=== PATIENT | male | born 1945 | race Caucasian/White ===

== ENCOUNTER 2016-11-14 08:47 | Emergency (ER) | payer MEDICARE, BC ==
--- NOTE | ~2016-11-14 | CT4 ---
[facility] A Service of [facility] / [facility] RADIOLOGY TEXT RESULTS PATIENT: ALMAZ BOYER LOCATION: [facility] : 43 UNIT #: [id number] AGE: [address]: Celeste Delgadillo APRN SEX: M ORDER DR: [id number] [facility] [address] [facility] [place], [place] [address] [id number] MR#: [id number] Acc #: [id number] NAME: ALMAZ BOYER : 1945 SEX: M STUDY DATE/TIME: 11/14/2016 10:32 UNIT: [facility] ROOM: STUDY DESCRIPTION: CT Abd and Pelv Wo Cont Attending Physician: Celeste Delgadillo A.P.R.N. Ordering Physician: Celeste Delgadillo A.P.R.N. Primary Care Physician: Primary Care Physician No MEDICAL IMAGING REPORT This report is preliminary unless electronic signature is present EXAM Abdomen and pelvis CT HISTORY Left-sided renal colic with nausea and frequent urination accompanied by low back pain beginning 11/11/2016. COMPARISON 09/26/2012 TECHNIQUE Axial images were obtained without contrast. This CT exam was performed with one or more of the following radiation dose reduction techniques: automatic exposure control, adjustment of mA and/or kV according to patient size, and iterative reconstruction. FINDINGS The liver, spleen and pancreas are normal in size. The right kidney is unremarkable. The left kidney demonstrates severe hydronephrosis with perinephric edema. There is a stone in the mid-left ureter at the level of the pelvic brim measuring 6.0 mm in diameter x 7.0 mm causing the obstruction. No bladder stones are seen. Diverticulosis is seen. No acute or inflammatory changes are noted elsewhere in the abdomen or pelvis. IMPRESSION 1. 6.0 x 7.0 mm obstructing stone mid-left ureter at the level of the iliac crest with severe hydronephrosis and perinephric edema. 2. No inflammatory or acute changes are seen elsewhere in the abdomen or pelvis. Dictated by... Daniele Pham M.D. [facility] A Service of [facility] & [facility] RADIOLOGY TEXT RESULTS PATIENT: ALMAZ BOYER LOCATION: [facility] : 43 UNIT #: [id number] AGE: [address]: Celeste Delgadillo APRN SEX: M ORDER DR: THIS IS AN ELECTRONICALLY VERIFIED REPORT Daniele Pham M.D. at 11/16/2016 9:45 AM Pretty TD: 11/14/2016 22:26 JOB #: [id number] MEDICAL IMAGING REPORT Page 1 of 1 COPY
--- NOTE | ~2016-11-14 | CR7 ---
[facility] A Service of [facility] RADIOLOGY TEXT RESULTS PATIENT: ALMAZ BOYER LOCATION: [facility] : 44 UNIT #: [id number] AGE: [address]: Celeste Delgadillo APRN SEX: M ORDER DR: [id number] [facility] [address] [facility] [place], [place] [address] [id number] E MR#: [id number] Acc #: [id number] NAME: ALMAZ BOYER : 1945 SEX: M STUDY DATE/TIME: 11/14/2016 11:37 UNIT: [facility] ROOM: STUDY DESCRIPTION: CR Abdomen Single AP View Attending Physician: Celeste Delgadillo A.P.R.N. Ordering Physician: Juan C Hernandez M.D. Primary Care Physician: Primary Care Physician No MEDICAL IMAGING REPORT This report is preliminary unless electronic signature is present EXAM AP view of the abdomen, 11/14/[address] abdomen and pelvis dated November 14, 2016 INDICATION 71-year-old male with left flank and back pain for 3 days. Kidney stone. FINDINGS There is A stable bowel gas pattern with gaseous and stool distension of the cecum, unchanged from CT of earlier today. No evidence of high-grade mechanical bowel obstruction. Prior lower anterior abdominal wall hernia repair is noted. Calcified splenic granulomas are noted. Obstructive left ureteral calculus seen on CT of early today is not visualized on the current radiograph and this may be radiographically occult. IMPRESSION 1. Stable stool and gaseous distension of the cecum. No evidence of mechanical bowel obstruction. 2. The distal left obstructive ureteral calculus seen on CT of earlier today is not seen on current radiograph and may be radiographically occult. Clinical correlation recommended. Dictated by... Amari Hugo M.D. THIS IS AN ELECTRONICALLY VERIFIED REPORT Amari Hugo M.D. at 11/16/2016 10:51 AM VICTORINA/cristina TD: 11/14/2016 23:53 [facility] A Service of [facility] RADIOLOGY TEXT RESULTS PATIENT: ALMAZ BOYER LOCATION: [facility] : 44 UNIT #: [id number] AGE: [address]: Celeste Delgadillo APRN SEX: M ORDER DR: JOB #: [id number] MEDICAL IMAGING REPORT Page 1 of 1 COPY
[2016-11-14 07:27] LABS: URINE SOURCE CLEAN CATCH
[2016-11-14 07:33] LABS: URINE APPEARANCE CLEAR; URINE BILIRUBIN NEG (NEG); URINE BLOOD 1+ (NEG); URINE COLOR YELLOW; URINE GLUCOSE NEG (NEG); URINE KETONE 3+ (NEG); URINE LEUKOCYTE ESTERASE TRACE (NEG); URINE NITRATE NEG (NEG); URINE PH 6.5 (5-8); URINE PROTEIN NEG (NEG)
[2016-11-14 07:35] LABS: CULTURE INDICATED? NO; U HYALINE CASTS AUWI 0-2 /[LPF]; URINE BACTERIA AUWI NEG (NEGATIVE); URINE SQUAMOUS EPITHELIAL CELL NONE SEEN /[HPF]; UWBCS1 AUWI 0-2 (0-5)
[2016-11-14 09:12] LABS: HEMATOCRIT 44.2 % (38.0-50.0); HEMOGLOBIN 14.5 gm/dL (13.0-16.0); LYMPHOCYTE# 0.3 X10e3 (1.0-3.5); LYMPHOCYTE% 2.3 % (17.0-45.0); MEAN CELL VOLUME 94.7 FL (83-96); MEAN CORPUSCULAR HEMOGLOBIN 31.1 PG (28-34); MEAN CORPUSCULAR HGB CONC 32.9 g/dL (30-36); MEAN PLATELET VOLUME 8.1 FL (6.5-11.5); MONOCYTE# 0.8 X10e3 (0-1.0); MONOCYTE% 6.2 % (3.0-12.0); NEUTROPHIL# 11.5 X10e3 (1.5-7.1); NEUTROPHIL% 91.5 % (40-75); PLATELET COUNT 211 X10e3 (140-420); RED BLOOD COUNT 4.67 X10e (3.90-5.60); RED CELL DISTRIBUTION WIDTH 13.6 % (11.0-15.5); WHITE BLOOD COUNT 12.6 X10e3 (4.0-10.5)
[2016-11-14 09:13] LABS: DIFF IND NO
[2016-11-14 09:36] LABS: ALBUMIN SERUM 4.4 g/dL (3.5-5.0); BILIRUBIN, DIRECT 0.2 mg/dL (0.0-0.2); BILIRUBIN,INDIRECT 1.1 mg/dL (0.0-0.9); BILIRUBIN,TOTAL 1.3 mg/dL (0.2-2.0); BUN/CREATININE RATIO 11.87; CALCIUM SERUM 9.5 mg/dL (8.4-10.2); CREATININE SERUM 1.6 mg/dL (0.6-1.4); GLOM FILT RATE Estimated 42.4 mL/min (>60); POTASSIUM 3.9 mmol/L (3.5-5.1); PROTEIN TOTAL SERUM 7.3 g/dL (6.0-8.3)
== END 2016-11-14 11:45 | disposition home or self-care (01) ==
LOC: CED 08:47
PROVIDERS: Nurse Practitioner
DX: N13.2 Hydronephrosis with renal and ureteral calculous obstruction (principal)
CPT/HCPCS: 36415; 74000; 74176; 80048; 80076; 81003; 83690; 85025; 99284; J1885; J2405

== ENCOUNTER → 2016-12-24 | Outpatient (CLI) | payer MEDICARE, BC ==
--- NOTE | ~2016-12-24 | US77 ---
[facility] Service of [facility] & [facility] RADIOLOGY TEXT RESULTS PATIENT: ALMAZ BOYER LOCATION: [facility] : 43 UNIT #: [id number] AGE: [address]: Daniele Leong MD SEX: M ORDER DR: [id number] [facility] [address] [place], [place] [address] [id number] O MR#: [id number] Acc #: [id number] NAME: ALMAZ BOYER : 1945 SEX: M STUDY DATE/TIME: 12/24/2016 12:48 UNIT: [facility] ROOM: STUDY DESCRIPTION: US Kidney Bilateral Complete Attending Physician: Daniele Leong M.D. Referring Physician: Daniele Leong M.D. Ordering Physician: Daniele Leong M.D. Primary Care Physician: Rosendo Chung M.D. MEDICAL IMAGING REPORT This report is preliminary unless electronic signature is present EXAM Renal ultrasound bilateral 12/24/2016 INDICATIONS 71-year-old male with history of renal stones. Kidney stone that was too large to pass recently had surgery to remove the stone a month ago. Reevaluation requested today. Sonographic imaging of the kidneys was performed bilaterally. COMPARISON STUDIES Correlation is made with CT 11/14/2016 FINDINGS The right kidney measures 9.2 cm long axis and the left 8.1 cm. No hydronephrosis or shadowing stone on either side. No perinephric fluid collection is seen. Bladder unremarkable for degree of distension. IMPRESSION Negative bilateral renal ultrasound. No shadowing stone or hydronephrosis. Dictated by... Luis Parikh M.D. THIS IS AN ELECTRONICALLY VERIFIED REPORT Luis Parikh M.D. at 12/24/2016 4:21 PM Destiny TD: 12/24/2016 15:36 JOB #: [id number] MEDICAL IMAGING REPORT Page 1 of 1 COPY
== END | disposition home or self-care (01) ==
LOC: CGUS 12:26
DX: N20.0 Calculus of kidney (principal)
CPT/HCPCS: 76770

== ENCOUNTER → 2017-02-09 | Outpatient (CLI) | payer MEDICARE, BC ==
--- NOTE | ~2017-02-09 | TH ---
Unit #: [id number] #: [id number] Patient: ALMAZ BOYER [id number] [address] [address] [id number] O MR#: [id number] NAME: ALMAZ BOYER. : 1945 SEX: M STUDY DATE/TIME: 02/09/2017 UNIT: [facility] ROOM: STUDY DESCRIPTION: Cardiolite imaging. Attending Physician: Sha Bean M.D. Referring Physician: Sha Bean M.D. Primary Care Physician: Rosendo Chung M.D. CARDIOLOGY REPORT EXAM Cardiolite imaging. PROCEDURE This 72-year-old patient was exercised on a treadmill and at the peak of the exercise the patient was injected with 34.1 mCi of technetium 99m Cardiolite and images were obtained according to the standard SPECT protocol. For rest images 11.98 mCi of Cardiolite were injected. Images were reviewed in both phases. FINDINGS Overall study quality is excellent. Left ventricular cavity size is normal in both images. There is no lung activity. Right ventricle is normal. Rotating raw data showed no significant artifact, soft tissue attenuation or GI uptake. Review of SPECT images showed a normal homogeneous radiotracer concentration throughout the myocardium in both stress and rest images. Gated image showed normal left ventricular wall thickening and wall motion with an estimated left ventricular ejection fraction of 62%. IMPRESSION 1. Myocardial perfusion imaging is normal. 2. No evidence of ischemia or infarct. 3. Normal left ventricular dimensions. 4. Normal systolic left ventricular function with an estimated left ventricular ejection fraction of 62%. Dictated by... Terry Stoll M.D. KLJ/gz TD: 02/10/2017 11:21 JOB #: [id number] Unit #: [id number] #: [id number] Patient: ALMAZ BOYER CARDIOLOGY REPORT Page 1 of 1 X Terry Stoll MD CARDIOLOGY REPORT
--- NOTE | ~2017-02-09 | ST ---
Unit #: [id number] #: [id number] Patient: ALMAZ BOYER [id number] [address] [address] [id number] O MR#: [id number] NAME: ALMAZ BOYER. : 1945 SEX: M STUDY DATE/TIME: 02/09/2017 UNIT: [facility] ROOM: STUDY DESCRIPTION: Cardiac stress test. Attending Physician: Sha Bean M.D. Referring Physician: Sha Bean M.D. Primary Care Physician: Rosendo Chung M.D. CARDIOLOGY REPORT EXAM Cardiac stress test. PROCEDURE Baseline EKG normal sinus rhythm, nonspecific ST-T changes. Resting heart rate 55 per minute, blood pressure 156/92. This 72-year-old patient was exercised on a Homero protocol for 6 minutes 15 seconds, achieving a heart rate of 140 per minute. Peak blood pressure was 160/89. No ischemic changes noted. No arrhythmias noted. Blood pressure response was normal. One ventricular couplet noted. IMPRESSION 1. Negative exercise test for ischemia. 2. One ventricular couplet noted. 3. Normal blood pressure response to exercise. 4. Correlate with Cardiolite study. Dictated by... Harley Barth/abilio TD: 02/10/2017 11:15 JOB #: [id number] CARDIOLOGY REPORT Page 1 of 1 X Terry Stoll MD CARDIOLOGY REPORT
--- NOTE | ~2017-02-09 | HM ---
Unit #: [id number] #: [id number] Patient: ALMAZ BOYER [id number] [address] [address] [id number] O MR#: [id number] NAME: ALMAZ BOYER. : 1945 SEX: M STUDY DATE/TIME: 02/09/2017 UNIT: [facility] ROOM: STUDY DESCRIPTION: Attending Physician: Sha Bean M.D. Referring Physician: Sha Bean M.D. Primary Care Physician: Rosendo Chung M.D. CARDIOLOGY REPORT EXAM 24-hour Holter monitor. DATE APPLIED 02/09/2017 DATE SCANNED 02/15/2017 [place] [facility] [place] ORDERED BY Dr. Bean. REASON FOR STUDY PVCs and dizziness. FINDINGS 1. Basic rhythm is normal sinus rhythm. Total beats 109, 981. Average heart rate 76 per minute. Heart rate varies from 48 per minute at 2227 to 115 per minute at 1401. 2. Two hundred and sixty isolated PVCs and three ventricular couplets noted. 3. A hundred and seventy six isolated PACs and two atrial couplets noted. 4. No high-grade AV block noted. 5. No diary with the symptoms available. Dictated by... Terry Stoll M.D. PAULY/villa TD: 02/15/2017 17:26 JOB #: [id number] Unit #: [id number] #: [id number] Patient: ALMAZ BOYER CARDIOLOGY REPORT Page 1 of 1 X Terry Stoll MD [facility]IT[facility] REPORT
== END | disposition home or self-care (01) ==
LOC: CNUC 07:17
DX: I49.3 Ventricular premature depolarization (principal); R94.31 Abnormal electrocardiogram [ECG] [EKG]; I51.7 Cardiomegaly
CPT/HCPCS: 78452; 93017; 93225; 93226; 93306; A9500